=== PATIENT | female | born 1990 ===

== ENCOUNTER 2016-11-11 05:40 | Inpatient (IN) | payer MEDICAID, OTHER ==
[2016-11-11] MEDS ORDERED: Lactated Ringer's 1,000 ML IV SCH (06:29)
[2016-11-11 06:30] VITALS: BMI 29.7
[2016-11-11] MEDS ORDERED: Lidocaine 1% Inj (20ml) ONE (07:08)
[2016-11-11 07:22] LABS: BASO % 0.3 % (0.0-2.0); EOS # 0.1 K/uL (0.0-0.7); EOS % 0.9 % (0.0-4.0); HEMATOCRIT 37.5 % (34.0-47.0); LYMPH # 1.5 K/uL (1.0-4.3); LYMPH % 13.7 % (20.0-40.0); MEAN CELL VOLUME 83.6 fl (81.0-99.0); MEAN CORPUSCULAR HEMOGLOBIN 26.7 pg (27.0-31.0); MEAN PLATELET VOLUME 9.4 fl (7.2-11.7); MONO # 0.8 K/uL (0.0-0.8); MONO % 6.8 % (0.0-10.0); NEUT # 8.6 K/uL (1.8-7.0); NEUT % 78.3 % (50.0-75.0); RED CELL DISTRIBUTION WIDTH 13.2 % (11.5-14.5)
[2016-11-11] MEDS: Lactated Ringer's 1,000 ML IV SCH ×2 (08:00→08:46)
[2016-11-11] MEDS ORDERED: Fentanyl/Bupivacaine HCl 250 ML EPI ONE (08:46)
[2016-11-11] MEDS ORDERED: Oxycodone/Acetaminophen 5/325 mg Tab PO PRN ×3 (18:19→20:29)
[2016-11-11] MEDS ORDERED: Benzocaine/Menthol SPRAY TOP PRN ×2 (18:19→20:29)
--- NOTE | 2016-11-11 19:04 | OBDS ---
DELIVERY PERSONNEL Delivery Doctor: Jama Talbert MD [facility]: Jennifer Atkinson RN Anesthesiologist: venkat Resident: Dr Melony MATERNAL INFORMATION Delivery Anesthesia: Epidural Medications in Delivery: pitocin 20 units 1 L, lidocaine 1% Placenta Cultured: No Maternal Complications: None Provider Comments: Op Note AP dx: 37 wks; labor PP dx: same Procedure: ; repair of 2nd degree laceration [facility] 3[facility]: anitha resident: darren pgy1 findigs: viable female; 3185g; 9_9 pt remained in br to nbn plac to path no complications LABOR SUMMARY EDC: 11/26/2016 00:00 No. Babies in Womb: 1 Attempted: No Labor Anesthesia: Epidural LABOR INFORMATION Onset of Labor: 11/11/2016 03:00 Complete Dilatation: 11/11/2016 17:45 Oxytocin: N/A Group B Beta Strep: Negative Antibiotics # of Doses: 0 Antibiotics Time of Last Dose: 0 Steroids Given: None Reason Steroids Not Administered: Not Applicable MEMBRANES Membranes Rupture Method: Artificial Rupture of Membranes: 11/11/2016 13:50 Length of Rupture (hrs): 4.30 Amniotic Fluid Color: Clear Amniotic Fluid Amount: Moderate Amniotic Fluid Odor: Normal STAGES OF LABOR Stage 1 hrs: 14 Stage 1 min: 45 Stage 2 hrs: 0 Stage 2 min: 23 Stage 3 hrs: 0 Stage 3 min: 6 Total Time in Labor hrs: 15 Total Time in Labor min: 14 VAGINAL DELIVERY Laceration Extension: Second Degree Laceration Type: Vaginal Laceration Repair: Yes Initial Vag Sponge Count: 10 Final Vag Sponge Count: 10 Initial Vag Sharps Count: 2 Final Vag Sharps Count: 2 BABY A INFORMATION Delivery Date/Time: 11/11/2016 18:08 Method of Delivery: Vaginal Born in Route : No : N/A Forceps: N/A Vacuum Extraction: N/A Shoulder Dystocia : No SHOULDER DYSTOCIA BABY A Delivery Date/Time: 11/11/2016 18:08 PRESENTATION/POSITION BABY A Presentation: Cephalic Cephalic Presentation: Vertex Vertex Position: Right Occipital Anterior PLACENTA INFORMATION BABY A Placenta Delivery Time : 11/11/2016 18:14 Placenta Method of Delivery: Spontaneous Placenta Status: Delivered SCORES BABY A Heart Rate 1 min: >100 bpm Resp Effort 1 min: Good Cry Reflex Irritability 1 min: Cough or Sneeze or Pulls Away Muscle Tone 1 min: Active Motion Color 1 min: Body [place], Extremities Blue SCORE 1 MIN: 9 Heart Rate 5 min: >100 bpm Resp Effort 5 min: Good Cry Reflex Irritability 5 min: Cough or Sneeze or Pulls Away Muscle Tone 5 min: Active Motion Color 5 min: Body [place], Extremities Blue SCORE 5 MIN: 9 INFANT INFORMATION BABY A Gestational Age at Delivery: 38.0 Gestational Status: Term Infant Outcome : Liveborn Condition : Stable Infant Sex: Female WEIGHT/LENGTH BABY A Birthweight (gms): 3185 Weight (lb): 7 Weight (oz): 0 Length Inches: 20.50 Infant Length cms: 52.1 CORD INFORMATION BABY A No. Cord Vessels: 3 Nuchal Cord : N/A Cord Blood Taken: Yes Infant Suction: Mouth; Nose
[2016-11-12] MEDS ORDERED: Pneumococcal 23-Valent Vaccine IM ONE (02:10)
[2016-11-12] MEDS: Oxycodone/Acetaminophen 5/325 mg Tab PO PRN ×2 (06:02→16:35)
[2016-11-12 07:17] LABS: HEMATOCRIT 35.7 % (34.0-47.0); MEAN CELL VOLUME 84.2 fl (81.0-99.0); MEAN CORPUSCULAR HEMOGLOBIN 26.5 pg (27.0-31.0); MEAN CORPUSCULAR HGB CONC 31.5 g/dL (33.0-37.0); RED CELL DISTRIBUTION WIDTH 13.4 % (11.5-14.5); WHITE BLOOD COUNT 19.9 K/uL (4.8-10.8)
--- NOTE | 2016-11-13 06:19 | OBPPN ---
Datetime: 11/12/2016 05:47 PP Pain Prov: Within normal limits PP Nausea Prov: Denies PP Flatus Prov: Yes PP BM Prov: No PP Breasts Prov: Normal PP Heart Prov: Normal PP Lungs Prov: Normal PP Abdomen/Uterus Prov: Normal PP Lochia Prov: Normal PP Vulva/Perineum Prov: Normal PP CVA Tenderness Prov: Normal PP Extremities Prov: Normal PP C/S Incision Prov: Not Applicable PP Progress Prov: Normal PP Comments Phys Exam Prov: abd: +BS, soft, mild tendereness diffusely. ND, no guarding/rigidity. Fu ndus firm at level of umbilicus PP Impression Prov: Normal progression PP Plan Prov: Continue present management PP Progress Note Prov: pt seen and examined at bedside. No acute events overnight. Pt reports mild p elvic pain controlled w/ pain meds. OOB/ambulating w/o difficulty. Bottle feeding only but will star t attempting today. Lochia is less than menses in volume. Reports no bowel movement yet but is passing flatus. Tolerating PO intake w/o difficutly. Denies fevers, chills, n/v/d, CP/SOB, lightheadedness and calf pain. A/P: 25 y/o s/p on 11/11/2016 @ 18:08 afebrile, tolerating pain w/ medication, doing wel l on PPD#1. -continue current management -Ibuprofen 600 mg 1 tab Q6h PO prn for mild pain. -Encourage breast feeding. -Anticipate DC 11/13 Jaren Teixeira MD PGY1 @ 5:51am OB Hospitalist note. On rounds at 22:00pm, I saw and examined this pt. Agree with PGY1 note [facility] O Vital Signs Provider PP: Reviewed; Within Normal Limits
--- NOTE | 2016-11-13 13:23 | OBPPN ---
Datetime: 11/13/2016 06:35 PP Pain Prov: Within normal limits PP Nausea Prov: Denies PP Flatus Prov: Yes PP BM Prov: Yes PP Breasts Prov: Normal PP Heart Prov: Normal PP Lungs Prov: Normal PP Abdomen/Uterus Prov: Normal PP Lochia Prov: Normal PP Vulva/Perineum Prov: Normal PP CVA Tenderness Prov: Normal PP Extremities Prov: Normal PP C/S Incision Prov: Not Applicable PP Progress Prov: Normal PP Comments Phys Exam Prov: abd: +BS, soft, NT/ND. No guarding/rigidity. Fundus firm below level of umbilicus PP Impression Prov: Normal progression PP Plan Prov: Discharge PP Progress Note Prov: pt seen and examined at bedside. No acute events overnight. Pt reports mild p elvic pain controlled w/ pain meds. OOB/ambulating w/o difficulty. Bottle/. Lochia is less than menses in volume. +flatus/+bm. Tolerating PO intake w/o difficutly. Denies fevers, chills, n/v/d, CP/SOB, lightheadedness and calf pain. A/P: 25 y/o s/p on 11/11/2016 @ 18:08 afebrile, tolerating pain w/ medication, doing wel l on PPD#2. -discharge home today -Ibuprofen 600 mg 1 tab Q6h PO prn for mild pain. -Encourage breast feeding. -nothing per vagina -plans to use OCPs for control -f/u with [facility] in 6 weeks Jaren Teixeira MD PGY1 @ 6:38am OB Hospitalist note. On rounds this morning, I saw and examined this pt. Agree with PGY1 note [id number] NDO Vital Signs Provider PP: Reviewed; Within Normal Limits
--- NOTE | 2016-11-13 13:25 | OBDCSUM ---
Datetime: 11/13/2016 06:38 Discharged to, Provider: Home Follow up at, Provider: [facility] Disch Instr Activity: Normal activity; May be up to bathroom; May be up for meals; May Shower Disch Instr Diet: Regular Discharge Instructions, Provider: Routine instructions given Discharge Diagnosis, Provider: Term Delivered Discharge Time: 11/13/2016 13:00 Follow up in weeks, Provider: 4 to 6 weeks Disch Referrals: None Contraception discussed, Prov: Yes Disch Activity Restrictions: No lifting; No sexual activity; Nothing in vagina - [place], tampon s, douche Contraception after Delivery: Control Pill/Patch; Depo-Provera
== END 2016-11-13 13:05 | disposition home or self-care (01) | DRG 373 ==
LOC: H.EROB2 05:40 → H.L&D 06:30 → H.OB/GYN 20:15
PROVIDERS: ADMIT Obstetrics & Gynecology Gynecology; ATTEND Obstetrics & Gynecology Gynecology
PROC: 0KQM0ZZ Repair Perineum Muscle, Open Approach (ICD-10-PCS; principal; 2016-11-11)
PROC: 10E0XZZ Delivery of Products of Conception, External Approach (ICD-10-PCS; 2016-11-11)
PROC: 4A1HXCZ Monitoring of Products of Conception, Cardiac Rate, External Approach (ICD-10-PCS; 2016-11-11)
DX: O70.1 Second degree perineal laceration during delivery (principal); Z37.0 Single live birth; Z3A.37 37 weeks gestation of pregnancy